=== PATIENT | female | born 2000 | race Hispanic/Latino ===

== ENCOUNTER 2021-11-16 10:36 | Emergency (ER) | payer OTHER ==
[2021-11-16 12:10] LABS: URINE PREG TEST NEGATIVE (NEGATIVE)
[2021-11-16 14:13] LABS: GC DNA AMPLIFICATION NEGATIVE (NEGATIVE)
[2021-11-16 14:55] VITALS: BP 108/80
== END 2021-11-16 15:00 | disposition home or self-care (01) ==
LOC: M ED 10:36
DX: N89.8 Other specified noninflammatory disorders of vagina (principal); J06.9 Acute upper respiratory infection, unspecified